=== PATIENT | male | born 1955 | race African-American/Black ===

== ENCOUNTER 2022-10-22 11:49 | Emergency (ER) | payer OTHER, MEDICAID ==
[~2022-10-22] VITALS: Ht 180.3 cm; Wt 105.0 kg
[2022-10-22 11:55] VITALS: BP 149/79
== END 2022-10-22 13:46 | disposition left against medical advice (07) ==
LOC: ER 11:49
DX: Z53.21 Procedure and treatment not carried out due to patient leaving prior to being seen by health care provider (principal)